=== PATIENT | female | born 1960 | race Caucasian/White ===

== ENCOUNTER 2020-06-20 05:48 | Observation (INO) ==
[2020-06-20 06:30] LABS: Eosinophils # 0.1 K/mcL (0.0-0.6); Eosinophils % 2.2 %; Hemoglobin 14.9 g/dL (11.5-15.4); Immature Granulocytes % 0.2 % (0-4); Lymphocytes # 1.1 K/mcL (0.6-4.6); Lymphocytes % 26.8 %; Mean Corpuscular HGB Conc 33.1 g/dL (31.6-35.5); Mean Corpuscular Hemoglobin 30.9 pg (28.0-33.3); Mean Corpuscular Volume 93.4 fL (83.0-100.0); Monocytes # 0.3 K/mcL (0.0-1.3); Monocytes % 7.5 %; Neutrophils # 2.6 K/mcL (1.6-8.9); Platelet Count 198 K/mcL (140-400); Red Blood Count 4.82 M/mcL (3.82-4.97); Red Cell Distribution Width 11.9 % (11.5-14.5); Segmented Neutrophils % 62.3 %; White Blood Count 4.1 K/mcL (4.3-11.1)
[2020-06-20 06:34] LABS: INR 1.3; Prothrombin Time 14.9 Seconds (9.4-12.1)
[2020-06-20 06:36] LABS: Activated Partial Thrombo Time 36.4 Seconds (26.0-36.0)
[2020-06-20] MEDS ORDERED: Aspirin 81 MG TAB.CHEW PO STA (06:49)
[2020-06-20] MEDS ORDERED: *HR* FentaNYL (PF) 100 MCG/2 ML VIAL IVP ONE (06:49)
[2020-06-20 06:52] LABS: BUN/Creatinine Ratio 22 (6-26); Blood Urea Nitrogen 17 mg/dL (8-23); Carbon Dioxide 24 mEq/L (23-29); Chloride 106 mEq/L (98-107); Glucose 97 mg/dL (70-105); Osmolality,Calculated 289 (280-300); Potassium 4.4 mEq/L (3.5-5.1); Sodium 139 mEq/L (136-145); eGFR For African Americans > 60 (> 60); eGFR For Non-African Americans > 60 (> 60)
[2020-06-20] MEDS ORDERED: Isovue-370 500 ML BOTTLE IVP ONE (06:53)
[2020-06-20 07:26] LABS: Troponin I < 0.03 ng/mL (< 0.04)
[2020-06-20] MEDS ORDERED: Ondansetron 4 MG/2 ML VIAL IVP PRN (08:30)
[2020-06-20] MEDS ORDERED: Acetaminophen 325 MG TABLET PO PRN (08:30)
[2020-06-20] MEDS ORDERED: Naloxone 0.4 MG/ML INJ IVP PRN (08:30)
[2020-06-20] MEDS ORDERED: Nitroglycerin 0.4 MG TAB.SUBL SL PRN (08:32)
[2020-06-20] MEDS: Metoprolol XL (24 HR) Succ 50 MG TAB.ER.24H PO SCH ×2 (10:27→21:52)
[2020-06-21 06:32] LABS: Basophils % 0.8 %; Eosinophils # 0.1 K/mcL (0.0-0.6); Eosinophils % 1.5 %; Hematocrit 43.4 % (35.3-44.9); Hemoglobin 14.4 g/dL (11.5-15.4); Immature Granulocytes % 0.3 % (0-4); Lymphocytes # 1.1 K/mcL (0.6-4.6); Lymphocytes % 27.6 %; Mean Corpuscular HGB Conc 33.2 g/dL (31.6-35.5); Mean Corpuscular Volume 93.3 fL (83.0-100.0); Mean Platelet Volume 8.8 fL (9.4-12.4); Monocytes # 0.3 K/mcL (0.0-1.3); Monocytes % 8.4 %; Neutrophils # 2.4 K/mcL (1.6-8.9); Platelet Count 180 K/mcL (140-400); Red Blood Count 4.65 M/mcL (3.82-4.97); Segmented Neutrophils % 61.4 %; White Blood Count 3.9 K/mcL (4.3-11.1)
[2020-06-21 06:49] LABS: BUN/Creatinine Ratio 24 (6-26); Blood Urea Nitrogen 18 mg/dL (8-23); Calcium 9.1 mg/dL (8.6-10.3); Carbon Dioxide 24 mEq/L (23-29); Chloride 107 mEq/L (98-107); Glucose 90 mg/dL (70-105); Magnesium 2.1 mg/dL (1.6-2.6); Osmolality,Calculated 287 (280-300); Potassium 4.3 mEq/L (3.5-5.1); Sodium 138 mEq/L (136-145); eGFR For African Americans > 60 (> 60); eGFR For Non-African Americans > 60 (> 60)
[2020-06-21] MEDS ORDERED: FLUoxetine 20 MG CAPSULE PO SCH (09:00)
[2020-06-21] MEDS ORDERED: lisinopriL 10 MG TABLET PO SCH (09:00)
[2020-06-21] MEDS ORDERED: Aspirin 81 MG TAB.CHEW PO SCH (09:00)
[2020-06-21] MEDS: Metoprolol XL (24 HR) Succ 50 MG TAB.ER.24H PO SCH (09:23)
[2020-06-21] MEDS ORDERED: *HR* Heparin 10,000 UNIT/10 ML VIAL ONE (09:31)
[2020-06-21] MEDS ORDERED: 0.9 % Sodium Chloride 2,000 ML ONE (09:31)
[2020-06-21] MEDS ORDERED: Heparin 1,000 UNITS/500 mL 500 ML ONE (09:31)
[2020-06-21] MEDS ORDERED: ISOVUE-370 200 ML INFUS..BTL ONE ×2 (09:31→09:54)
[2020-06-21] MEDS ORDERED: Nitroglycerin 1,000 MCG/10 ML VIAL IV ONE (09:32)
[2020-06-21] MEDS ORDERED: *HR* Midazolam HCl 2 MG/2 ML VIAL ONE (09:55)
[2020-06-21 14:40] VITALS: BP 100/65
[2020-06-21] MEDS ORDERED: Apixaban 5 MG TABLET PO SCH (21:00)
== END 2020-06-21 19:45 | disposition home or self-care (01) ==
LOC: EMEROOARM 05:48 → 3BNU 05:48
PROVIDERS: ADMIT Internal Medicine; ATTEND Internal Medicine

== ENCOUNTER 2020-09-19 08:33 | Observation (INO) ==
[2020-09-19] MEDS ORDERED: Naloxone 0.4 MG/ML INJ IVP PRN (10:37)
[2020-09-19 11:48] LABS: Basophils % 0.8 %; Eosinophils # 0.3 K/mcL (0.0-0.6); Eosinophils % 5.3 %; Hemoglobin 13.4 g/dL (11.5-15.4); Immature Granulocytes % 0.2 % (0-4); Lymphocytes % 21.3 %; Mean Corpuscular HGB Conc 33.5 g/dL (31.6-35.5); Mean Corpuscular Hemoglobin 31.8 pg (28.0-33.3); Mean Corpuscular Volume 94.8 fL (83.0-100.0); Mean Platelet Volume 8.9 fL (9.4-12.4); Monocytes # 0.3 K/mcL (0.0-1.3); Monocytes % 6.3 %; Neutrophils # 3.1 K/mcL (1.6-8.9); Platelet Count 177 K/mcL (140-400); Red Blood Count 4.22 M/mcL (3.82-4.97); Red Cell Distribution Width 11.9 % (11.5-14.5); Segmented Neutrophils % 66.1 %; White Blood Count 4.8 K/mcL (4.3-11.1)
[2020-09-19 12:08] LABS: BUN/Creatinine Ratio 37 (6-26); Blood Urea Nitrogen 27 mg/dL (8-23); Carbon Dioxide 29 mEq/L (23-29); Chloride 108 mEq/L (98-107); Glucose 90 mg/dL (70-105); Osmolality,Calculated 293 (280-300); Potassium 4.3 mEq/L (3.5-5.1); Sodium 139 mEq/L (136-145); eGFR For African Americans > 60 (> 60); eGFR For Non-African Americans > 60 (> 60)
[2020-09-19 12:09] LABS: Magnesium 1.9 mg/dL (1.6-2.6); Phosphorous 3.3 mg/dL (2.7-4.5)
[2020-09-19] MEDS: Apixaban 5 MG TABLET PO SCH (19:45)
[2020-09-19] MEDS: Metoprolol XL (24 HR) Succ 50 MG TAB.ER.24H PO SCH (19:46)
[2020-09-19] MEDS: Acetaminophen 325 MG TABLET PO PRN (21:28)
[2020-09-20] MEDS: Metoprolol XL (24 HR) Succ 50 MG TAB.ER.24H PO SCH ×2 (08:09→21:00)
[2020-09-20] MEDS: Multivit/Ca/Min/Fe/FA 1 TAB TABLET PO SCH (08:09)
[2020-09-20] MEDS: FLUoxetine 20 MG CAPSULE PO SCH (08:09)
[2020-09-20] MEDS: Apixaban 5 MG TABLET PO SCH ×2 (08:09→21:00)
[2020-09-20] MEDS: lisinopriL 5 MG TABLET PO SCH (08:09)
[2020-09-20] MEDS: Aspirin Enteric Coated 81 MG Tablet PO SCH (08:09)
[2020-09-21] MEDS: Acetaminophen 325 MG TABLET PO PRN (04:36)
[2020-09-21] MEDS: Apixaban 5 MG TABLET PO SCH (08:26)
[2020-09-21] MEDS: Aspirin Enteric Coated 81 MG Tablet PO SCH (08:26)
[2020-09-21] MEDS: Multivit/Ca/Min/Fe/FA 1 TAB TABLET PO SCH (08:26)
[2020-09-21] MEDS: lisinopriL 5 MG TABLET PO SCH (08:26)
[2020-09-21] MEDS: Metoprolol XL (24 HR) Succ 50 MG TAB.ER.24H PO SCH (08:27)
[2020-09-21] MEDS: FLUoxetine 20 MG CAPSULE PO SCH (08:27)
[2020-09-21] MEDS ORDERED: 0.9 % Sodium Chloride 500 ML IVC ONE (10:55)
[2020-09-21] MEDS ORDERED: *HR* Midazolam HCl 2 MG/2 ML VIAL IVP PRN (10:55)
[2020-09-21] MEDS ORDERED: *HR* Midazolam HCl 5 MG/5 ML VIAL IVP ONE ×2 (11:04→11:05)
[2020-09-21] MEDS: *HR* FentaNYL (PF) 100 MCG/2 ML VIAL IVP PRN ×2 (11:15→11:19)
[2020-09-21 16:33] VITALS: BP 101/58
== END 2020-09-21 17:03 | disposition home or self-care (01) ==
LOC: 2ANU
PROVIDERS: ADMIT Internal Medicine Clinical Cardiac Electrophysiology; ATTEND Internal Medicine Clinical Cardiac Electrophysiology